=== PATIENT | female | born 1955 | race Hispanic/Latino ===

== ENCOUNTER 2021-10-07 20:38 | Inpatient (IN) | payer OTHER ==
--- OUTSIDE RECORDS SUMMARY | 2021-10-07 20:41 | XMS REPORT | Continuity of Care Document ---
:1955 Author Organization [facility] t Address [facility] [address] [place] [address] Care Team Providers Name Role Phone PCP, DOES NOT HAVE A Primary Care Physician Unavailable Adam Lozoya Attending Clinician Unavailable RADIOLOGY Attending Clinician Unavailable Radiology Attending Clinician Unavailable Merlin Zamorano Attending Clinician Unavailable Pao Mendoza Admitting Clinician Unavailable URIEL ROBLERO Admitting Clinician Unavailable Dioni Gaston Admitting Clinician Unavailable Payers Payer Name Policy Type Policy Number Effective Date Expiration Date Eunice boyd [employer] [id number] 2021 00:00:00 SPRING Problems Condition Condition Condition Status Onset Resolution Last Treating Co mments Source Name Details Category Date Date Treatment Clinician Date Diabetes Diabetes Disease Active 2008-05 Unive rs mellitus mellitus 1-20 ity of 00:00: [address] Mixed Mixed Disease Active Univers hyperlipid hyperlipid 8-21 it y of emia emia 00:00: [address] Other Other Disease Active Univers specified specified 4-14 [place] of disorders disorders [place] 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 glands Branch Allergies, Adverse Reactions, Alerts Allergy Allergy Status Severity Reaction(s) Onset Inactive Treating Comm ents Source Name Type Date Date Clinician morphine DA Active U [facility]21 [place] 00:00: [address] morphine DA Active U [facility]ERE [facility] - [place] 00:00: [address] NO KNOWN Drug Active Univers ALLERGIE Class ity of S [facility] Social History Social Habit Start Date Stop Date Quantity Comments Source Sex Assigned At [birth year] [facility] 00:00:00 00:00:00 Medical Branch Smoking Status Start Date Stop Date Source Unknown if ever smoked [facility] Medications Ordered Filled Start Stop Current Ordering Indication Dosage Frequency Signature Comments Components Source Medication Medication Date Date Medication? Clinician (SIG) Name Name URSODIOL 2008-05 Yes [id number] 1 twice Un сергей 500 MG ORAL 1-20 daily ity of TAB 16:03: [place] 26 Medical Branch LOVAZA 1 2008-05 Yes two caps Unive rs GRAM ORAL 1-20 bid ity of CAP 15:24: [place] 09 Medical Branch ACETAMINOPH 2008-05 Yes qid prn Uni vers N-ISOMETH-D 1-20 for ity of ICHLORAL 15:22: [place] ORAL [place] 39 Medical Branch LEVOTHYROXI 2008-05 Yes once daily Univers NE 50 MCG 1-20 ity of ORAL TAB 15:21: [place] 46 Medical Branch CHOLECALCIF 2008-05 Yes [id number] 2 pills Univers AZEEM 1-20 daily ity of (VITAMIN 15:21: [place] D3) 1,000 39 Medical UNIT ORAL Branch TAB LANTUS 2008-05 Yes [id number] INJECT 48 Un сергей SOLOSTAR 1-20 UNITS AT ity of 300 UNIT/3 00:00: [place] INPN 00 Medical Branch METFORMIN 2008-05 Yes [id number] 1 by mouth Univers 500 MG ORAL 1-20 two times ity of TAB 00:00: a day 30 [place] 00 mins Medical before Branch meals NOVOLOG 2008-05 Yes [id number] Inject Univ ers FLEXPEN 100 1-20 28-45 ity of UNIT/ML SC 00:00: units [place] INPN 00 three Medical times Branch daily before meals BD INSULIN 2008-05 Yes [id number] Use 4 Un сергей PEN NEEDLE 1-20 daily as ity o f UF SHORT [place] X 16 INCH 00 with Medical [facility] insulin Branch pens FREESTYLE 2008-05 Yes [id number] Use 3-4 U nivers TEST IN 1-20 times ity of VITRO STRP 00:00: daily as Antwan as 00 directed Medical Branch Procedures Procedure Date / Time Performed Performing Clinician [facility] e US ABDOMEN LIMITED 2021-07-15 00:20:47 Requisition, Paper Univer [facility] ASSIGNMENT OF BENEFITS 2021-07-14 22:57:27 Doctor Unassigned, No [facility] Name Medical Branch CONSENT/REFUSAL FOR 2021-07-14 22:57:05 Doctor Unassigned, No Un [facility] DIAGNOSIS AND Name Medical Branch TREATMENT NOTICE OF PRIVACY 2021-07-14 22:56:52 Doctor Unassigned, No Univ [facility] PRACTICES Name Medical Branch Encounters Start End Encounter Admission Attending Care Care Encounter Source Date/Time Date/Time Type Type Clinicians Facility Department ID 2021-03-20 Outpatient Darell RAJAT EARL [id number] [facility] 14:50:48 Mikie 52 [facility] 2021-07-14 2021-07-14 Outpatient R RADIOLOGY [facility] [id number] Univers 17:59:12 [facility]59[facility]-07-[facility] 2021-07-14 Hospital Radiology [facility] [id number] Univers 17:59:12 23:59:00 [facility]counter [place] [id number] [id number] [facility] 806 Branch 2021-03-19 2021-03-19 Outpatient MORIAH Lozoya RAJAT RAD [id number] [facility] 11:41:00 11:41:00 Mikie [id number] [facility] 2020-01-04 2020-01-04 Outpatient Zamorano RAJAT MAMMO [id number] [facility] 09:30:00 09:30:00 Rebecca [id number] [facility] Results Test Description Test Time Test Comments Results Result [facility] e Comments - MRI ABDOMEN W WO 2021-03-20 CONT 14:47:00 [facility] 1955 Sex: F FAX: Kerwin Carney MD [phone] Camps: [address]: DEP FAX: Mikie Lozoya MD [phone] Name: CHRISTIANO KING [facility] : 1955 Age/S: 65/F [address] [facility] Unit #: [id number] Loc: VR.MRI [place], [place] [address] Phys: Mikie Lozoya MD Acct: [id number] Dis Date: Status: DEP CLI PHONE #: [phone] Exam Date: 03/19/2021 1317 FAX #: [phone] Reason: ABN.FINDING ON DX OF IMAGE OF LIVER EXAMS: CPT CODE: [id number] MRI ABDOMEN W WO CONT [id number] EXAM: - MRI ABDOMEN W WO CONT LOCATION: C1 INDICATION: 65 years -old Female with ABN.FINDING ON DX OF IMAGE OF LIVER COMPARISON: CT abdomen and pelvis 04/09/2016, 07/09/2011. TECHNIQUE: Multisequential, multiplanar MRI of the abdomen without and with the use of intravenous contrast. FINDINGS: LUNG BASES: Small left-sided pleural effusion with overlying atelectasis. LIVER: Morphologic changes of chronic liver disease noted including nodular contour and fissural widening. Few subcentimeter nodules with intrinsic T1 hyperintensity are noted, representing regenerative versus dysplastic nodules. No well-defined lesion demonstrating arterial hyperenhancement, portal venous/delayed phase washout, T2 hyperintensity, or restricted diffusion is noted throughout the liver. BILIARY: Status post cholecystectomy. No intrahepatic or extrahepatic biliary ductal dilation. PANCREAS: Normal. SPLEEN: Within the upper limits of normal size. ADRENALS: There is a 2.2 x 2.0 cm avidly enhancing left adrenal nodule. This does not demonstrate signal loss on opposed phase imaging. This nodule is grossly unchanged in size dating back to 2011. The right adrenal gland is unremarkable. KIDNEYS: The kidneys are normal in size with symmetric enhancement. No hydronephrosis. GASTROINTESTINAL: Limited assessment of the small and large bowel loops demonstrate no gross signs of obstruction or inflammation. VASCULAR: The abdominal aorta is nonaneurysmal. Classic hepatic PAGE 1 Signed Report (CONTINUED) FAX: Kerwin Carney MD [phone] Camps: KEV[address] St: DEP FAX: Mikie Lozoya MD [phone] Name: CHRISTIANO KING [facility] : 1955 Age/S: 65/F [address] [facility] Unit #: [id number] Loc: VR.[place] [address] Phys: Mikie Lozoya MD Acct: [id number] Dis Date: Status: DEP CLI PHONE #: [phone] Exam Date: 03/19/20217 FAX #: [phone] Reason: ABN.FINDING ON DX OF IMAGE OF LIVER EXAMS: CPT CODE: [id number] MRI ABDOMEN W WO CONT [id number] <Continued> arterial anatomy noted. There is a nonocclusive thrombus noted within the portal confluence and main portal vein. The intrahepatic portal vein branches are patent. There is recanalization of the paraumbilical veins. Few perigastric varices are present. LYMPH NODES: No enlarged lymph nodes. MESENTERY: Small volume ascites noted. BONES: No acute osseous findings. IMPRESSION: 1. Morphologic changes of chronic liver disease noted with early sequelae of portal hypertension. No areas of arterial hyperenhancement, delayed phase washout, T2 hyperintensity, or restricted diffusion noted throughout the liver. 2. Nonocclusive main portal vein from this extending to the portal confluence. The intrahepatic portal vein branches are patent throughout. 3. Unchanged 2.2 cm avidly enhancing left adrenal nodule, which does not demonstrate typical MRI features of benign lipid rich adenoma. However, this nodule is grossly unchanged in size dating back to 2011 and demonstrates relatively low-density on prior noncontrast CT. Giving comparisons, this may represent a lipid poor adenoma, which is best assessed with adrenal mass protocol CT if clinically warranted. 4. Small volume ascites and small left-sided pleural effusion. at 1447 Reported and signed by: YESIKA PRECIADO DO PAGE 2 Signed Report (CONTINUED) FAX: Kerwin Carney MD [phone] Camps: [address] St: DEP FAX: Mikie Lozoya MD [phone] Name: FERNANDOCHRISTIANO [facility] : 1955 Age/S: 65/F [address] [facility] Unit #: [id number] Loc: VR.MRI [place], [place] [address] Phys: Mikie Lozoya MD Acct: [id number] Dis Date: Status: DEP CLI PHONE #: [phone] Exam Date: 03/19/2021 1317 FAX #: [phone] Reason: ABN.FINDING ON DX OF IMAGE OF LIVER EXAMS: CPT CODE: [id number] MRI ABDOMEN W WO CONT [id number] <Continued> CC: KERWIN MENDOZA MD; Mikie Lozoya MD Technologist: Reginaldo Gutierrez RT(R)(CT)(MRI)ARRT Transcribed Date/Time/By: 03/20/2021 (5037) :Maria [email or web address] Orig Print D/T: S: 03/20/2021 ([id number]) PAGE 3 Signed Report - MAMMO ROXANA SCR 2020-01-05 FAX: N CAD BI 11:35:00 Rebecca Zamorano MD [phone] Camps: [address] St: DEP FAX: Kerwin Carney MD [phone] Name: FERNANDOCHRISTIANO Porter [facility] : 1955 Age/S: 64/F [address] [facility] Unit #: [id number] Loc: [place] [address] Phys: Rebecca Zamorano MD Acct: [id number] Dis Date: Status: DEP CLI PHONE #: [phone] Exam Date: 01/04/2020 1010 FAX #: [phone] Reason: SCREENING EXAMS: CPT CODE: [id number] [place] [id number] EXAMINATION: Screening mammogram date 01/04/2020. Location code:C3 Comparison: Prior mammogram performed on 11/21/2015. Findings: Synthetic 2D CC and MLO projections were obtained of both breasts using digital technique.3-D CC and MLO tomosynthesis projections were also obtained. The bilateral breast parenchyma is heterogeneously dense, which may obscure detection of small masses mammographically. No suspicious findings are seen within either breast. Enhanced V preview imaging was utilized in the interpretation of this exam. Impression: 1. No mammographic evidence of malignancy. 2. Recommend annual screening mammogram in one year. BI-RADS 2-BENIGN FINDINGS. RECOMMEND ANNUAL SCREENING MAMMOGRAM IN ONE YEAR. FO R INTERNAL CODING PURPOSES ONLY RESULT CODE: 2 FOLLOW UP: N at 1135 Reported and signed by: GIANLUCA SIBLEY M.D. CC: Rebecca Zamorano MD; KERWIN MENDOZA MD Technologist: Bobbi MOYA)([place])(ARRT) Transcribed Date/Time/By: 01/05/2020 ([id number]) :Maria AlejandraCP11 Orig Print D/T: S: 01/05/2020 (6443) PAGE 1 Signed Report
[2021-10-07 21:34] LABS: Hematocrit 32.5 % (36.0-45.0); Lymphocytes % 25.4 % (15.3-44.8); MPV 7.9 fL (7.6-11.3); RBC Red Blood Cell Count 3.78 M/uL (3.86-4.86)
--- NOTE | 2021-10-07 21:54 | RAD REPORT ---
EXAM DESCRIPTION: RAD - Chest Single View - 10/07/2021 9:33 pm CLINICAL HISTORY: TRAUMA Chest pain. COMPARISON: CHEST PA AND LAT 2 VIEW dated 02/18/2008; CHEST PA AND LAT 2 VIEW dated 09/27/2006 FINDINGS: Portable technique limits examination quality. Opacity is present in the left lung base retrocardiac region which may be atelectasis or developing i nfiltrate. The heart is upper limit of normal in size. No displaced fractures.
[2021-10-07 21:55] LABS: Potassium 3.8 mmol/L (3.5-5.1)
[2021-10-07 21:58] LABS: Troponin High Sensitivity 89.3 pg/mL (<58.9)
--- NOTE | 2021-10-07 22:26 | RAD REPORT ---
EXAM DESCRIPTION: CT - CTHCSPWOC - 10/07/2021 10:16 pm CLINICAL HISTORY: Trauma, head and neck injury. fall, head injury COMPARISON: <Comparisons> TECHNIQUE: Axial 5 mm thick images of the head were obtained. Axial 2 mm thick images of the cervical spine were obtained with sagittal and coronal reconstruction images generated and reviewed. All CT scans are performed using dose optimization technique as appropriate and may include automated exposure control or mA/KV adjustment according to patient size. FINDINGS: CT HEAD WITHOUT CONTRAST: No acute hemorrhage, hydrocephalus or extra-axial collection is identified.Mild periventricular chron ic microvascular ischemic changes.No areas of brain edema or midline shift. The paranasal sinuses and mastoids are clear.The calvarium is intact. CT CERVICAL SPINE WITHOUT CONTRAST: No fracture or subluxation.No prevertebral soft tissues swelling is identified. IMPRESSION: No acute intracranial or cervical spine findings.
--- NOTE | 2021-10-07 23:29 | EDPHYS ---
Physician Documentation [facility] Name: Sarahy Alexis Age: 66 yrs Sex: Female : 1955 Arrival Date: 10/07/2021 Time: 20:48 Bed 6 Private MD: ED Physician Vishal Bess HPI: 10/07 21:05 This 66 yrs old Female presents to ER via EMS with complaints of Fall Injury. jmm 21:05 Details of fall: The patient fell from an upright position. Onset: The symptoms/episode jmm began/occurred acutely. 21:46 Associated injuries: The patient sustained injury to the head. This is a 66 year old [facility] female with a history of cirrhosis of the liver and DM that presents to the ED with complains of head injury. Patient slipped and fell in the shower. Daughter states the patient is a baseline mentation. . Historical: - Allergies: 20:56 Morphine; tw5 - Home Meds: 20:56 Insulin: Novolin 70/30 Sub-Q [Active]; Furosemide Oral 40 mg [Active]; Ursodiol Oral tw5 [Active]; Lactulose Oral [Active]; Omeprazole Oral [Active]; - PMHx: 20:56 Cirrhosis of liver; Diabetes mellitus; tw5 - Immunization history:: Flu vaccine is not up to date. Moderna x 3. - Immunization history: Last tetanus immunization: unknown. - Social history:: Smoking status: Patient denies any tobacco usage or history of. Patient uses. ROS: 21:46 Constitutional: Negative for fever, chills, and weight loss, Cardiovascular: Negative jmm for chest pain, palpitations, and edema, Respiratory: Negative for shortness of breath, cough, wheezing, and pleuritic chest pain. 21:46 Neuro: Positive for headache. 21:46 All other systems are negative. Exam: 21:46 Constitutional: This is a well developed, well nourished patient who is awake, alert, jmm and in no acute distress. 21:46 Eyes: EOMI, no conjunctival erythema appreciated ENT: Moist Mucus Membranes Neck: Trachea midline, Supple Cardiovascular: Regular rate and rhythm. No edema appreciated Respiratory: Normal respirations, no respiratory distress appreciated Abdomen/GI: Non distended, soft Back: Normal ROM 21:46 Head/face: hematoma noted to the left parietal scalp with abrasion. 21:46 Skin: abrasion noted to the left pareiatal scalp. 21:46 Neuro: Orientation: is normal, Mentation: is normal, Memory: is normal. 21:46 Psych: Behavior/mood is pleasant, cooperative. Vital Signs: 20:55 BP 124 / 74; Pulse 110; Resp 18 S; Temp 98.6(O); Pulse Ox 96% on R/A; Weight 76.2 kg bb (R); Height 5 ft. 0 in. (152.40 cm) (R); 21:49 BP 102 / 57; Pulse 104; Resp 18; Pulse Ox 97% on R/A; tw5 23:58 BP 124 / 73; Pulse 98; Resp 18; Pulse Ox 99% on R/A; tw5 20:55 Body Mass Index 32.81 (76.20 kg, 152.40 cm) bb [place] Coma Score: 20:55 Eye Response: spontaneous(4). Verbal Response: oriented(5). Motor Response: obeys bb commands(6). Total: 15. Trauma Score (Adult): 20:55 Eye Response: spontaneous(1); Verbal Response: oriented(1); Motor Response: obeys bb commands(2); Systolic BP: > 89 mm Hg(4); Respiratory Rate: 10 to 29 per min(4); Kimani Score: 15; Trauma Score: 12 MDM: 21:45 Patient medically screened. [facility] 23:25 Data reviewed: vital signs, nurses notes. Counseling: I had a detailed discussion with [facility] the patient and/or guardian regarding: the historical points, exam findings, and any diagnostic results supporting the discharge/admit diagnosis, lab results. 23:26 Counseling: I had a detailed discussion with the patient and/or guardian regarding: [facility] radiology results, the need for further work-up and treatment in the hospital. ED course: I discussed the patient with Valeriano Hahn whom accepted the patient to Dr. Benita ledbetter. . 10/07 21:05 Order name: Basic Metabolic Panel; Complete Time: 22:02 bb 10/07 21:05 Order name: CBC with Diff; Complete Time: 21:50 10/07 21:05 Order name: Troponin HS; Complete Time: 22:02 10/07 21:06 Order name: AMMONIA; Complete Time: 22:02 bb 10/07 22:19 Order name: SARS-COV-2 RT PCR (Document "Date of Onset" if Symptomatic) [facility] 10/08 03:20 Order name: CBC with Automated Diff [facility] 10/07 21:05 Order name: XRAY Chest (1 view); Complete Time: 22:02 10/07 21:05 Order name: EKG; Complete Time: 21:06 10/07 21:49 Order name: CT Head C Spine; Complete Time: 22:28 [facility] 10/08 03:40 Order name: Comprehensive Metabolic Panel [facility] 10/08 03:40 Order name: Troponin High Sensitivity [facility] 10/08 03:40 Order name: Lipid Profile [facility] 10/07 21:05 Order name: Cardiac monitoring; Complete Time: 21:31 10/07 21:05 Order name: EKG - Nurse/Tech; Complete Time: 21:31 10/07 21:05 Order name: IV Saline Lock; Complete Time: 21:32 10/07 21:05 Order name: Labs collected and sent; Complete Time: 21:32 10/07 21:05 Order name: O2 Per Protocol; Complete Time: 21:32 10/07 21:05 Order name: O2 Sat Monitoring; Complete Time: 21:32 bb Administered Medications: 23:56 Drug: NS 0.9% 1000 ml Route: IV; Rate: 75 ml/hr; Site: right antecubital; 10/08 00:44 Follow up: IV Status: Infusion continued upon admission [facility] 10/07 23:57 Drug: Lactulose 20 grams Volume: 30 ml; Route: PO; 10/08 00:44 Follow up: Response: No adverse reaction Disposition: 06:38 Co-signature as Attending Physician, Vishal Bess MD. [email or web address] Disposition Summary: 10/07/21 23:28 Hospitalization Ordered Hospitalization Status: Observation jmm Provider: Mina Meléndez Condition: Stable jmm Problem: new jmm Symptoms: have improved jmm Bed/Room Type: Standard [facility] Location: Telemetry/MedSurg (observation)(10/08/21 05:41) mw Room Assignment: 410(10/08/21 05:41) mw Diagnosis - Elevated Troponin jmm - Dehydration jmm - Fall jmm - Acute Head Injury jmm Forms: - Medication Reconciliation Form [facility] - SBAR form [facility] Signatures: Dispatcher [employer] EDLaura Hopkins RN RN Diomedes Rojo PA PA jmm Ballard, Brenda, RN RN bb Holmes, Maurice, MD MD mh7 Myriam [place] 5 Corrections: (The following items were deleted from the chart) 10/07 23:39 23:28 Telemetry/MedSurg (observation) [facility] 23:39 23:28 [facility] 10/08 05:41 10/07 23:39 [facility] ER HOLD [facility] 10/08 05:41 10/07 23:39 ERHOLD- [facility]
--- NOTE | 2021-10-07 23:29 | ER ---
Nurse's Notes [facility] Name: Sarahy Alexis Age: 66 yrs Sex: Female : 1955 Arrival Date: 10/07/2021 Time: 20:48 Bed 6 Private MD: Diagnosis: Elevated Troponin;Dehydration;Fall;Acute Head Injury Presentation: 10/07 20:55 Chief complaint: EMS states: they were toned out for report of pt having fallen while bb on the toilet tonight hitting her head receiving a laceration to the left side of her head unknown if LOC. Care prior to arrival: None. Mechanism of Injury: Fall. Trauma event details: Injury occurred in the [facility], Injury occurred: at home. Injury occurred: October 07, 2021. 20:55 Acuity: MARGIE 3 bb 20:55 Method Of Arrival: EMS: [facility] bb 20:59 Coronavirus screen: At this time, the client does not indicate any symptoms associated bb with coronavirus-19. Ebola Screen: No symptoms or risks identified at this time. Initial Sepsis Screen: Does the patient meet any 2 criteria? No. Patient's initial sepsis screen is negative. Does the patient have a suspected source of infection? No. Patient's initial sepsis screen is negative. Risk Assessment: Do you want to hurt yourself or someone else? Patient reports no desire to harm self or others. Onset of symptoms was October 07, 2021. 20:59 Care prior to arrival: Glucose check: 239. bb Triage Assessment: 21:00 General: Appears in no apparent distress. Behavior is calm, cooperative, appropriate tw5 for age. Historical: - Allergies: 20:56 Morphine; tw5 - Home Meds: 20:56 Insulin: Novolin 70/30 Sub-Q [Active]; Furosemide Oral 40 mg [Active]; Ursodiol Oral tw5 [Active]; Lactulose Oral [Active]; Omeprazole Oral [Active]; - PMHx: 20:56 Cirrhosis of liver; Diabetes mellitus; tw5 - Immunization history:: Flu vaccine is not up to date. Moderna x 3. - Immunization history: Last tetanus immunization: unknown. - Social history:: Smoking status: Patient denies any tobacco usage or history of. Patient uses. Screenin:55 Abuse screen: Denies threats or abuse. Tuberculosis screening: No symptoms or risk bb factors identified. 20:56 Nutritional screening: No deficits noted. Fall Risk Fall in past 12 months (25 points). tw5 Secondary diagnosis (15 points) IV access (20 points). Primary Survey: 20:55 NO uncontrolled hemorrhage observed. Breathing/Chest: Spontaneous respiratory effort, bb equal unlabored respirations, breath sounds clear bilaterally, regular pattern, symmetrical chest rise and fall. Circulation: No external hemorrhage present. Regular and strong central pulse, skin warm/dry/normal color. Disability Client is alert. 10/08 00:44 Exposure/Environment: There is no evidence of uncontrolled external bleeding. tw5 Reassessment Breathing: Spontaneous respiratory effort, equal unlabored respirations, breath sounds clear bilaterally, regular pattern with symmetrical chest rise and fall. Assessment: 10/07 20:52 General: Reports Patient reports "I am feeling a little bit better." Daughter reports tw5 Elke fell in the bathroom and hit her head on the side of the shower after trying to stand up from the commode. Pain: Complains of pain in left occipital area Pain currently is 7 out of 10 on a pain scale. Neuro: Level of Consciousness is awake, alert, obeys commands, Oriented to person, place, time, situation. Neuro: Pupils are PERRLA. Respiratory: Airway is patent Trachea midline Respiratory effort is even, unlabored. EENT:. 21:49 Reassessment: Patient appears in no apparent distress at this time. No changes from tw5 previously documented assessment. Patient and/or family updated on plan of care and expected duration. Pain level reassessed. Patient is alert, oriented x 3, equal unlabored respirations, skin warm/dry/pink. Vital Signs: 20:55 BP 124 / 74; Pulse 110; Resp 18 S; Temp 98.6(O); Pulse Ox 96% on R/A; Weight 76.2 kg bb (R); Height 5 ft. 0 in. (152.40 cm) (R); 21:49 BP 102 / 57; Pulse 104; Resp 18; Pulse Ox 97% on R/A; tw5 23:58 BP 124 / 73; Pulse 98; Resp 18; Pulse Ox 99% on R/A; tw5 20:55 Body Mass Index 32.81 (76.20 kg, 152.40 cm) bb Kimani Coma Score: 20:55 Eye Response: spontaneous(4). Verbal Response: oriented(5). Motor Response: obeys bb commands(6). Total: 15. Trauma Score (Adult): 20:55 Eye Response: spontaneous(1); Verbal Response: oriented(1); Motor Response: obeys bb commands(2); Systolic BP: > 89 mm Hg(4); Respiratory Rate: 10 to 29 per min(4); [place] Score: 15; Trauma Score: 12 ED Course: 20:48 Patient arrived in ED. tw5 20:52 Myriam Vila is Primary Nurse. tw5 20:55 Patient has correct armband on for positive identification. Placed in gown. Bed in low bb position. Call light in reach. Side rails up X2. Adult w/ patient. 20:55 Patient maintains SpO2 saturation greater than 95% on room air. bb 20:56 Client placed on continuous cardiac and pulse oximetry monitoring. NIBP monitoring tw5 applied. Door closed. Noise minimized. Moved to private room. 20:56 Initial lab(s) drawn, by ED staff, sent to lab. Inserted saline lock: 20 gauge in right tw5 antecubital area, using aseptic technique. Blood collected. Inserted saline lock: collected by [employer] 20:57 Triage completed. bb 20:59 Arm band placed on. bb 21:00 Thermoregulation: warm blanket given to patient. tw5 21:05 Diomedes Rojo PA is PHCP. jmm 21:05 Vishal Bess MD is Attending Physician. jmm 21:31 Deven Coles, PINA is Primary Nurse. as6 21:31 Basic Metabolic Panel Sent. tw5 21:32 CBC with Diff Sent. tw5 21:32 Troponin HS Sent. tw5 21:32 Wound care: to laceration located on left occipital area was cleaned with soap and tw5 water, Patient tolerated well. 21:35 XRAY Chest (1 view) In Process Unspecified. EDMS 21:37 Diomedes Rojo PA is PHCP. jmm 21:37 Vishal Bess MD is Attending Physician. jmm 21:50 Basic Metabolic Panel Sent. tw5 21:50 Troponin HS Sent. tw5 21:50 AMMONIA Sent. tw5 22:17 CT Head C Spine In Process Unspecified. EDMS 23:06 SARS-COV-2 RT PCR (Document "Date of Onset" if Symptomatic) Sent. 23:28 Mina Meléndez MD is Hospitalizing Provider. [facility] 23:32 SARS-COV-2 RT PCR (Document "Date of Onset" if Symptomatic) Sent. 10/08 00:44 No provider procedures requiring assistance completed. Patient admitted, IV remains in tw5 place. Administered Medications: 10/07 23:56 Drug: NS 0.9% 1000 ml Route: IV; Rate: 75 ml/hr; Site: right antecubital; 10/08 00:44 Follow up: IV Status: Infusion continued upon admission 10/07 23:57 Drug: Lactulose 20 grams Volume: 30 ml; Route: PO; 10/08 00:44 Follow up: Response: No adverse reaction Medication: 10/07 20:56 VIS not applicable for this client. Intake: 20:55 PO: 0ml; Total: 0ml. bb Outcome: 23:28 Decision to Hospitalize by Provider. [facility] 10/08 00:44 Admitted to ER Hold. Please see [facility] for further documentation. tw5 Condition: stable Discharge instructions given to patient, Instructed on the need for admit, Demonstrated understanding of instructions. 00:46 Patient's length of stay was not longer than 2 hours. tw 06:01 Admitted to Med/surg Report called to report called to hillary tw5 06:20 Patient left the ED. Signatures: Dispatcher [employer] EDMS Diomedes Rojo PA PA jmm Ballard, Brenda, RN RN bb Wood, Tiffany tw5 Deven Coles RN RN as6 Parisa Duckworth
[2021-10-07] MEDS ORDERED: LACTULOSE 20 GM/30 ML UCUP ONE (23:51)
[2021-10-07] MEDS ORDERED: NA CHLORIDE 0.9% 1,000 ML ONE (23:54)
--- NOTE | 2021-10-07 23:59 | P.HP ---
Certification for Inpatient Patient admitted to: Observation With expected LOS: <2 Midnights Patient will require the following post-hospital care: None Practitioner: I am a practitioner with admitting privileges, knowledge of patient current condition, hospital course, and medical plan of care. Services: Services provided to patient in accordance with Admission requirements found in Title 42 Section 412.3 of the Code of Federal Regulations Patient History Date of Service: 10/07/21 Reason for admission: Fall, VAL History of Present Illness: 66-year-old female history of diabetes type 2insulin-dependent, cirrhosis of liverNash presents emergency department after fall at home that was unwitnessed. Patient reports that she thinks she tripped but cannot be sure she was evaluated in the emergency department her labs were significant for an 1.43 GFR 40 no labs available for comparison her troponin high-sensitivity was also mildly elevated 89.3 ED prior wishes to admit under observation for ACS rule out, fall. Suspect mild hepatic encephalopathy had not taken her nighttime dose of lactulose yet. - Past Medical/Surgical History -: MEYER -: DMII Past Surgical History: Reviewed- Non-Contributory Psychosocial/ Personal History: Lives at home with family - Family History Family History: Reviewed- Non-Contributory - Social History Smoking Status: Never smoker Alcohol use: No CD- Drugs: No Caffeine use: Yes Place of Residence: Home Review of Systems Unremarkable Physical Examination - Physical Exam General: Alert, In no apparent distress, Oriented x3 HEENT: Atraumatic, PERRLA, Mucous membr. moist/pink, EOMI, Sclerae nonicteric Neck: Supple, 2+ carotid pulse no bruit, No LAD, Without JVD or thyroid abno rmality Respiratory: Clear to auscultation bilaterally, Normal air movement Cardiovascular: Regular rate/rhythm, Normal S1 S2 Gastrointestinal: Normal bowel sounds, No tenderness Musculoskeletal: No tenderness Integumentary: No rashes Neurological: Normal speech, Normal strength at 5/5 x4 extr, Normal tone, Normal affect Lymphatics: No axilla or inguinal lymphadenopathy - Studies Laboratory Data (last 24 hrs) 10/07/21 20:55: WBC 4.1 L, Hgb 10.5 L, Hct 32.5 L, Plt Count 206 10/07/21 20:55: Sodium 139, Potassium 3.8, BUN 22 H, Creatinine 1.43 H, Glucose 226 H Assessment and Plan - Plan Assessment: Fall MEYER Hepatic encephalopathy VAL DMII-insulin dependent Elevated troponin Plan Fall: Eval by PT, reports possible mechanical fall, elevated troponin will trend, consult cardiology for significant elevations. MEYER: Stable, continue lactulose Hepatic encephalopathy: continue lactulose, close to baseline per family, speech mildly slurred. VAL: Continue IVF overnight suspect underlying CKD, no labs for comparison DMII-insulin dependent: ACHS RISS Elevated troponin: trend monitor on tele. cards consult if significantly elevated troponins. DVT PPX:Lovenox Code status:Full Discharge Plan: Home Plan to discharge in: 24 Hours - Advance Directives Does patient have a Living Will: No Does patient have a Durable POA for Healthcare: No - Code Status/Comfort Care Code Status Assessed: Yes (Full code) Critical Care: No Time Spent Managing Pts Care (In Minutes): 55
[2021-10-08] MEDS: NA CHLORIDE 0.9% 1,000 ML IV SCH ×2 (00:13→14:03)
[2021-10-08] MEDS ORDERED: ONDANSETRON 4 MG/2 ML VIAL IV PRN (00:13)
[2021-10-08 00:39] VITALS: BMI 33.2
[2021-10-08 03:18] LABS: Hematocrit 29.9 % (36.0-45.0); Lymphocytes % 22.4 % (15.3-44.8); MPV 7.9 fL (7.6-11.3); RBC Red Blood Cell Count 3.45 M/uL (3.86-4.86)
[2021-10-08 03:36] LABS: Albumin 2.1 g/dL (3.4-5.0); Bilirubin Total 0.6 mg/dL (0.2-1.0); Potassium 3.5 mmol/L (3.5-5.1); Protein, Total 8.2 g/dL (6.4-8.2)
[2021-10-08 03:40] LABS: Troponin High Sensitivity 108.4 pg/mL (<58.9)
[2021-10-08] MEDS: INSULIN -REGULAR HUMAN 50 UNIT/0.5 ML ML SQ SCH ×4 (07:30→21:00)
--- NOTE | 2021-10-08 07:53 | EKG ---
Test Date: 2021-10-07 Test Time: 21:11:19 Hydroponics Worker: GLORIA MEASUREMENT RESULTS: Intervals: Rate: 104 VA: QRSD: 148 QT: 422 QTc: 554 [place]: P: VA: QRS: -9 T: 49 INTERPRETIVE STATEMENTS: Wide QRS rhythm Right bundle branch block Abnormal ECG Compared to ECG 03/23/2006 18:58:25 Uncertain supraventricular rhythm now present Right bundle-branch block now present Sinus bradycardia no longer present Right-axis deviation no longer present T-wave abnormality no longer present Possible ischemia no longer present Electronically Signed On 10-08-21 07:52:28 CDT by Eleuterio Blackmon
[2021-10-08] MEDS ORDERED: POTASSIUM CL SA 10 MEQ TAB PO ONE (08:17)
[2021-10-08] MEDS: LACTULOSE 20 GM/30 ML UCUP PO SCH ×2 (09:49→21:28)
[2021-10-08] MEDS: ENOXAPARIN 30 MG/0.3 ML SQ SCH (09:49)
[2021-10-08] MEDS ORDERED: GLUCAGON 1 MG/VIAL IM PRN (14:23)
[2021-10-08] MEDS ORDERED: D10W 250 ML BAG IV PRN (14:49)
--- NOTE | 2021-10-08 15:31 | RAD REPORT ---
EXAM DESCRIPTION: RAD - Hand Right 2 View - 10/08/2021 3:16 pm CLINICAL HISTORY: Right hand pain status post injury FINDINGS: Limited two view series obtained Bones are osteoporotic No fracture or dislocation is seen.
[2021-10-08] MEDS: ASPIRIN EC 81 MG TAB PO SCH (16:24)
--- NOTE | 2021-10-08 17:35 | P.PN ---
Subjective Date of Service: 10/08/21 Chief Complaint: Fall, VAL Subjective: No new changes Physical Examination - Vital Signs Temperature: 97.2 F Blood Pressure: 112/56 Pulse: 67 Respirations: 20 Pulse Ox (%): 97 - Physical Exam General: Alert, Oriented x3 HEENT: Atraumatic, Normocephalic Neck: Supple Respiratory: Normal air movement - Studies Laboratory Data (last 24 hrs) 10/07/21 20:55: WBC 4.1 L, Hgb 10.5 L, Hct 32.5 L, Plt Count 206 10/07/21 20:55: Sodium 139, Potassium 3.8, BUN 22 H, Creatinine 1.43 H, Glucose 226 H Assessment And Plan - Plan - Plan Assessment: Fall MEYER Hepatic encephalopathy VAL DMII-insulin dependent Elevated troponin Plan Fall: Eval by PT, reports possible mechanical fall, elevated troponin will trend, consult cardiology for significant elevations. MEYER: Stable, continue lactulose Hepatic encephalopathy: continue lactulose, close to baseline per family, speech mildly slurred. VAL: Continue IVF overnight suspect underlying CKD, no labs for comparison DMII-insulin dependent: ACHS RISS Elevated troponin: trend monitor on tele. cards consult if significantly elevated troponins. DVT PPX:Lovenox Code status:Full Discharge Plan: Home Plan to discharge in: 24 Hours
[2021-10-08] MEDS ORDERED: URSODIOL 300 MG PO SCH (21:00)
[2021-10-08] MEDS: INSULIN 70/30 100 UNITS/ML SQ SCH (21:26)
[2021-10-09 04:49] LABS: Absolute Lymphocytes (CBC) 0.9 K/uL (0.7-4.9); Hematocrit 28.2 % (36.0-45.0); Lymphocytes % 27.2 % (15.3-44.8); MPV 7.8 fL (7.6-11.3); RBC Red Blood Cell Count 3.22 M/uL (3.86-4.86)
[2021-10-09 05:07] LABS: Albumin 1.9 g/dL (3.4-5.0); Bilirubin Total 0.7 mg/dL (0.2-1.0); Potassium 3.9 mmol/L (3.5-5.1); Protein, Total 7.8 g/dL (6.4-8.2)
[2021-10-09] MEDS: NA CHLORIDE 0.9% 1,000 ML IV SCH ×2 (06:13→18:44)
[2021-10-09] MEDS: LEVOTHYROXINE SOD 0.075 MG TAB PO SCH (06:13)
[2021-10-09] MEDS: INSULIN -REGULAR HUMAN 50 UNIT/0.5 ML ML SQ SCH ×4 (07:30→21:09)
[2021-10-09] MEDS ORDERED: ursodioL 300 MG CAP PO SCH (08:00)
[2021-10-09] MEDS ORDERED: POTASSIUM 25 MEQ EFFERV TAB PO ONE (09:00)
[2021-10-09] MEDS ORDERED: HOME MED 1 EA UNK (Omeprazole [Prilosec] 40 MG Capsule.Dr) PO SCH (09:00)
[2021-10-09] MEDS: PANTOPRAZOLE 40MG TABLET PO SCH (09:44)
[2021-10-09] MEDS: ASPIRIN EC 81 MG TAB PO SCH (09:44)
[2021-10-09] MEDS: INSULIN 70/30 100 UNITS/ML SQ SCH ×2 (09:44→21:08)
[2021-10-09] MEDS: FUROSEMIDE 40 MG TABLET PO SCH (09:45)
[2021-10-09] MEDS: LACTULOSE 20 GM/30 ML UCUP PO SCH ×2 (09:45→21:08)
[2021-10-09] MEDS: PROPRANOLOL HCL 10 MG TAB PO SCH (09:45)
[2021-10-09] MEDS: ENOXAPARIN 30 MG/0.3 ML SQ SCH (09:46)
--- NOTE | 2021-10-09 12:43 | CON ---
Date of Consultation: 10/09/2021 Reason For Consultation: Elevated troponin. History Of Present Illness: Ms. Alexis is a 66-year-old woman. Has a history of cirrhosis of the l iver, gastroesophageal reflux disease, hypothyroidism, and diabetes. Came in with a fall. No syncop e. Denied any chest pain, nausea, vomiting, diaphoresis, PND, orthopnea, pedal edema, palpitation. Denied any fever or chills or cough. Was found to have elevated troponin of 108 that has not increas ed. She had a hemoglobin of 9.4 and glucose of 226. EKG showed right bundle-branch block. She had a CT of her head and spine that were negative. Chest x-ray showed possible infiltrates. Echocardiog zaynab is pending. Asymptomatic now. Past Medical History: As stated above. Allergies: INCLUDE MORPHINE. Review of Systems: Negative. Social History: Negative. Family History: Noncontributory. Medications: At home include Lasix, insulin, Inderal, Synthroid, and Prilosec. Physical Examination: Vital Signs: Stable. She was afebrile. HEENT: Negative. Neck: Supple without any bruit, lymphadenopathy, JVD, or thyromegaly. Chest: Clear to auscultation and percussion. Cardiac: Revealed a regular rhythm and rate. No murmurs, gallops, or rubs. Abdomen: Benign. Extremities: Revealed no clubbing, cyanosis, or edema. Diagnostic Data: As stated earlier. Impression And Plan: Elevated troponin, not clinically significant, possibly secondary to demand isc hemia from her anemia and her diabetes. There is no history of chest pain or syncope. I do not thin k we are dealing with acute coronary syndrome. Her EKG showed what appears to be chronic right bundl e-branch block. Echocardiogram is pending. [facility] [employer] We will see what her echo shows. Her other problems including diabetes, cirrhosis, hypo thyroidism, gastroesophageal reflux disease are stable at this point. I will continue to follow her. NB/MODL Voice ID: [id number] Report ID: [id number]
--- NOTE | 2021-10-09 16:03 | P.PN ---
Subjective Date of Service: 10/09/21 Chief Complaint: Fall, VAL Physical Examination - Vital Signs Temperature: 97.2 F Blood Pressure: 112/56 Pulse: 67 Respirations: 20 Pulse Ox (%): 97 Assessment And Plan - Plan - Plan Assessment: Fall MEYER Hepatic encephalopathy VAL DMII-insulin dependent Elevated troponin Plan Fall: Eval by PT, reports possible mechanical fall, elevated troponin will trend, consult cardiology for significant elevations. MEYER: Stable, continue lactulose Hepatic encephalopathy: continue lactulose, close to baseline per family, speech mildly slurred. VAL: Continue IVF overnight suspect underlying CKD, no labs for comparison DMII-insulin dependent: ACHS RISS Elevated troponin: trend monitor on tele. cards consult if significantly elevated troponins. DVT PPX:Lovenox Code status:Full Discharge Plan: Home Plan to discharge in: 24 Hours
[2021-10-09] MEDS: URSODIOL 300 MG CAPSULE PO SCH (17:00)
[2021-10-10 03:22] VITALS: O2SAT 96
[2021-10-10 05:40] LABS: Magnesium 2.1 mg/dL (1.8-2.4); Potassium 4.2 mmol/L (3.5-5.1)
[2021-10-10] MEDS: LEVOTHYROXINE SOD 0.075 MG TAB PO SCH (06:03)
--- NOTE | 2021-10-10 07:08 | ECHO ---
HEIGHT: 5 ft 0 in WEIGHT: 158 lb 11.725 oz DATE OF STUDY: 10/09/[address]: Mina Meléndez MD 2-DIMENSIONAL: YES M.MODE: YES DOPPLER: YES COLOR FLOW: YES TDS: PORTABLE: YES DEFINITY: BUBBLE STUDY: DIAGNOSIS: SYNCOPE CARDIAC HISTORY: CATHERIZATION: SURGERY: PROSTHETIC VALVE: PACEMAKER: MEASUREMENTS (cm) DIASTOLIC (NORMALS) SYSTOLIC (NORMALS) IVSd 0.8 (0.6-1.2) LA Diam 3.2 (1.9-4.0) LVEF 60-65% LVIDd 4.1 (3.5-5.7) LVIDs 2.5 (2.0-3.5) %FS 38% LVPWd 0.8 (0.6-1.2) Ao Diam 2.5 (2.0-3.7) 2 DIMENSIONAL ASSESSMENT: RIGHT ATRIUM: NORMAL LEFT ATRIUM: NORMAL RIGHT VENTRICLE: NORMAL LEFT VENTRICLE: NORMAL TRICUSPID VALVE: NORMAL MITRAL VALVE: NORMAL PULMONIC VALVE: NORMAL AORTIC VALVE: NORMAL PERICARDIAL EFFUSION: NONE AORTIC ROOT: NORMAL LEFT VENTRICULAR WALL MOTION: NORMAL DOPPLER/COLOR FLOW: MILD AORTIC INSUFFICIENCY. MILD TRICUSPID REGURGITATION. COMMENTS: NORMAL LEFT VENTRICULAR EJECTION FRACTION 60-65%. NORMAL WALL MOTION. MILD AORTIC INSUFFICIENCY. MILD TRICUSPID REGURGITATION. TECHNOLOGIST: IVANIA ORTIZ
[2021-10-10] MEDS: INSULIN -REGULAR HUMAN 50 UNIT/0.5 ML ML SQ SCH ×2 (07:30→11:30)
[2021-10-10] MEDS: ENOXAPARIN 30 MG/0.3 ML SQ SCH (09:00)
[2021-10-10] MEDS: LACTULOSE 20 GM/30 ML UCUP PO SCH (09:57)
[2021-10-10] MEDS: ASPIRIN EC 81 MG TAB PO SCH (09:58)
[2021-10-10] MEDS: PANTOPRAZOLE 40MG TABLET PO SCH (09:58)
[2021-10-10] MEDS: PROPRANOLOL HCL 10 MG TAB PO SCH (09:58)
[2021-10-10] MEDS: URSODIOL 300 MG CAPSULE PO SCH (09:59)
[2021-10-10] MEDS: NA CHLORIDE 0.9% 1,000 ML IV SCH (09:59)
[2021-10-10] MEDS: INSULIN 70/30 100 UNITS/ML SQ SCH (09:59)
[2021-10-10] MEDS: FUROSEMIDE 40 MG TABLET PO SCH (10:00)
[2021-10-10 12:45] VITALS: BP 97/55; TEMP 96.6
--- NOTE | 2021-10-10 13:00 | P.DS ---
Admission Date: 10/09/21 Discharge Date: 10/10/21 Disposition: ROUTINE DISCHARGE Discharge Condition: GOOD Reason for Admission: Fall, VAL Brief History of Present Illness: 66-year-old female history of diabetes type 2insulin-dependent, cirrhosis of liverNash presents emergency department after fall at home that was unwitnessed. Patient reports that she thinks she tripped but cannot be sure she was evaluated in the emergency department her labs were significant for an 1.43 GFR 40 no labs available for comparison her troponin high-sensitivity was also mildly elevated 89.3 ED prior wishes to admit under observation for ACS rule out, fall. Suspect mild hepatic encephalopathy had not taken her nighttime dose of lactulose yet. Hospital Course: Patient was admitted for work-up and management of acute kidney injury and suspected fall episode secondary to hypotension. She responded well to gentle hydration and initial abnormality with VAL and creatinine that trended to 1.4 improved significantly. Latest creatinine today was at 1.08. She was worked up by cardiology for possible ACS because of elevated troponin and a syncopal episode and echocardiogram was read as normal. She was deemed stable for discharge today to continue with home medication and to follow-up with cardiology as scheduled. Vital Signs/Physical Exam: Temp Pulse Resp BP Pulse Ox 96.6 F L 63 16 97/55 L 94 10/10/21 12:00 10/10/21 12:00 10/10/21 12:00 10/10/21 12:00 10/10/21 12:00 General: Alert, Oriented x3 HEENT: Atraumatic, Normocephalic Neck: Supple Respiratory: Normal air movement Cardiovascular: Regular rate/rhythm, Normal S1 S2 Gastrointestinal: Soft and benign Musculoskeletal: No swelling Neurological: Normal speech Laboratory Data at Discharge: WBC 3.5 K/uL (4.3-10.9) L D 10/09/21 04:21 Hgb 8.8 g/dL (12.0-15.0) L 10/09/21 04:21 Hct 28.2 % (36.0-45.0) L 10/09/21 04:21 Plt Count 168 K/uL (152-406) 10/09/21 04:21 Sodium 142 mmol/L (136-145) 10/10/21 04:46 Potassium 4.2 mmol/L (3.5-5.1) 10/10/21 04:46 BUN 17 mg/dL (7-18) 10/10/21 04:46 Creatinine 1.08 mg/dL (0.55-1.3) 10/10/21 04:46 Glucose 133 mg/dL (74-106) H 10/10/21 04:46 Magnesium 2.1 mg/dL (1.8-2.4) 10/10/21 04:46 Total Bilirubin 0.7 mg/dL (0.2-1.0) 10/09/21 04:21 AST 38 U/L (15-37) H 10/09/21 04:21 ALT 27 U/L (12-78) 10/09/21 04:21 Alkaline Phosphatase 110 U/L (45-117) 10/09/21 04:21 Triglycerides 137 mg/dL (<150) 10/08/21 02:48 Cholesterol 116 mg/dL (<200) 10/08/21 02:48 HDL Cholesterol 32 mg/dL (40-60) L 10/08/21 02:48 Cholesterol/HDL Ratio 3.63 10/08/21 02:48 Home Medications: Furosemide [Lasix*] 40 mg PO DAILY 10/08/21 Insulin 70/30 NPH/Reg Human [Novolin 70/30*] 20 unit SQ BEDTIME 10/08/21 Insulin 70/30 NPH/Reg Human [Novolin 70/30*] 55 unit SQ BREAKFAST 10/08/21 Lactulose [Cephulac*] 10 gm PO BID 10/08/21 Levothyroxine Sodium [Euthyrox] 75 mcg PO DAILY 10/08/21 Omeprazole [Prilosec] 40 mg PO DAILY 10/08/21 Propranolol [Inderal*] 10 mg PO DAILY 10/08/21 ursodioL [Ursodiol] 600 mg PO BID 10/08/21 Diet: ADA Followup: Sam Peacock MD [Primary Care Provider] -
--- NOTE | 2021-10-11 12:17 | PN ---
Date of Progress Note: 10/10/2021 The patient is 66 years old. Came in with fall. No cardiac symptoms. Has had a history of diabetes , cirrhosis, gastroesophageal reflux disease, and hypothyroidism. Troponin was elevated at 108 and I have been consulted. Echocardiogram, however, that was done on 10/10/2021 showed a normal echocardi ogram, mild aortic regurgitation, ejection fraction of 65%, no wall motion abnormalities and no effus ion. Again, I think her troponin elevation was secondary to demand ischemia from some mild anemia. She has an EKG showing a right bundle-branch block. Chest x-ray showing a possible infiltrate. I wi ll continue her present regimen as it is right now. She will follow up with and with me in the near future. She can go home whenever it is okay with admitting physician, Dr. Meléndez. LAMONT/VICENTE Voice ID: [id number] Report ID: [id number]
== END 2021-10-10 13:50 | disposition home or self-care (01) | DRG 683 ==
LOC: ER 20:38 → ERHOLD 10-08 00:01 → 4TH 10-08 05:49 → OBSVTOIN 10-09 16:31
PROVIDERS: ADMIT Internal Medicine Nephrology; ATTEND Internal Medicine Nephrology
DX: N17.9 Acute kidney failure, unspecified (principal); I24.8 Other forms of acute ischemic heart disease; K75.81 Nonalcoholic steatohepatitis (NASH); K74.60 Unspecified cirrhosis of liver; K72.90 Hepatic failure, unspecified without coma; E86.0 Dehydration; R55 Syncope and collapse; D64.9 Anemia, unspecified; S09.90XA Unspecified injury of head, initial encounter; E11.9 Type 2 diabetes mellitus without complications; K21.9 Gastro-esophageal reflux disease without esophagitis; E03.9 Hypothyroidism, unspecified; I45.10 Unspecified right bundle-branch block; W19.XXXA Unspecified fall, initial encounter; Z20.822 Contact with and (suspected) exposure to COVID-19
CPT/HCPCS: 36415; 70450; 71045; 72125; 80048; 80053; 80061; 82140; 82947; 83735; 84484; 85025; 93005; 93306; 96360; 97116; 97161; 97530; 99285; G0378; J1650; J1815; J7030; U0003